=== PATIENT | male | born 1960 | race Caucasian/White ===

== ENCOUNTER 2021-05-21 13:14 | Inpatient (IN) | payer OTHER ==
[2021-05-21 14:51] VITALS: BMI 23.5
[2021-05-21] MEDS ORDERED: MAG HYDROX/AL HYDROX/SIMETH 30 ML UNIT-DOSE CUP PO PRN (15:12)
[2021-05-21] MEDS ORDERED: IBUPROFEN 400 MG TABLET (FP) PO PRN (15:12)
[2021-05-21] MEDS ORDERED: MAGNESIUM CITRATE 300 ML BOTTLE PO PRN (15:12)
[2021-05-21] MEDS ORDERED: METHOCARBAMOL 500 MG TABLET PO PRN (15:12)
[2021-05-21] MEDS ORDERED: NICOTINE 10 MG CARTRIDGE (INHALER) IH PRN (15:12)
[2021-05-21] MEDS ORDERED: MENTHOL/PHENOL 1 EACH UD MM PRN (15:12)
[2021-05-21] MEDS ORDERED: BISMUTH SUBSALICYLATE 524 MG/30 ML PO PRN (15:12)
[2021-05-21] MEDS ORDERED: ONDANSETRON *ODT* 4 MG TABLET SL PRN (15:12)
[2021-05-21] MEDS ORDERED: MAGNESIUM HYDROX 2400MG/30ML ORAL SUSPENSION 30 ML CUP PO PRN (15:12)
[2021-05-21] MEDS ORDERED: ACETAMINOPHEN 325 MG TABLET (FP) PO PRN ×2 (15:12)
[2021-05-21] MEDS: NICOTINE 21 MG/24 HOURS TOPICAL PATCH TD SCH (16:13)
[2021-05-21] MEDS: hydrOXYzine PAMOATE 25 MG CAPSULE (FP) PO SCH ×3 (18:23→22:38)
[2021-05-21] MEDS ORDERED: DIVALPROEX SODIUM 500 MG TABLET E.C. PO SCH (22:00)
[2021-05-21] MEDS ORDERED: THIAMINE HCL 100 MG TABLET (FP) PO SCH (22:00)
[2021-05-21] MEDS ORDERED: MELATONIN 5 MG TABLETS PO SCH (22:00)
[2021-05-21] MEDS: APIXABAN 5 MG TABLET PO SCH (22:35)
[2021-05-21] MEDS: CARVEDILOL 3.125 MG TABLET (FP) PO SCH (22:35)
[2021-05-22] MEDS: hydrOXYzine PAMOATE 25 MG CAPSULE (FP) PO SCH ×2 (05:37→10:16)
[2021-05-22 09:43] VITALS: BP 131/83; PULSE 91; TEMP 98
[2021-05-22] MEDS ORDERED: PRENATAL VITAMINS W/ FOLIC ACID TABLET (FP) PO SCH (10:00)
[2021-05-22] MEDS ORDERED: TAMSULOSIN HCL 0.4 MG CAP PO SCH (10:00)
[2021-05-22] MEDS: CARVEDILOL 3.125 MG TABLET (FP) PO SCH (10:16)
[2021-05-22] MEDS: APIXABAN 5 MG TABLET PO SCH (10:16)
[2021-05-22] MEDS: NICOTINE 21 MG/24 HOURS TOPICAL PATCH TD SCH (10:17)
[2021-05-22 10:45] LABS: HEMATOCRIT 46.6 % (35.4-49); HEMOGLOBIN 16.1 GM/dL (11.7-16.9); MCH 31.9 pg (25.7-33.7); MCHC 34.6 g/dl (32.0-35.9); MEAN CELL VOLUME 92.3 fl (80-96); PLATELET COUNT 242 10^3/uL (134-434); RBC 5.05 M/mm3 (4.00-5.60); RDW 15.6 % (11.9-15.9); WHITE BLOOD COUNT 7.2 K/mm3 (4.0-10.0)
[2021-05-22 11:02] LABS: BLOOD UREA NITROGEN 11.6 mg/dL (7-18); CALCIUM 9.2 mg/dL (8.5-10.1)
[2021-05-22 11:05] LABS: BILIRUBIN,TOTAL 1.7 mg/dL (0.2-1); CREATININE 1.2 mg/dL (0.55-1.3); TOT PROT 7.7 g/dl (6.4-8.2)
== END 2021-05-22 12:41 | disposition other institution (70) | DRG 774 ==
LOC: YASAS 13:14 → Y6N 14:38
PROVIDERS: ADMIT Allergy & Immunology; ATTEND Allergy & Immunology
PROC: HZ2ZZZZ Detoxification Services for Substance Abuse Treatment (ICD-10-PCS; principal; 2021-05-21)
DX: F10.230 Alcohol dependence with withdrawal, uncomplicated (principal); F14.20 Cocaine dependence, uncomplicated; F17.210 Nicotine dependence, cigarettes, uncomplicated; I10 Essential (primary) hypertension; Z86.711 Personal history of pulmonary embolism; Z86.718 Personal history of other venous thrombosis and embolism; Z79.01 Long term (current) use of anticoagulants; Z87.820 Personal history of traumatic brain injury
CPT/HCPCS: 36415; 71045-TC-FY; 80053; 85027; 86780; C9803; U0003; U0005

== ENCOUNTER 2021-05-22 11:32 | Inpatient (IN) | payer OTHER ==
[2021-05-22] MEDS ORDERED: NICOTINE POLACRILEX 2 MG GUM BUC PRN (14:05)
[2021-05-22] MEDS ORDERED: P-EPHED 60MG/TRIPROLIDI 2.5MG TABLET PO PRN (14:05)
[2021-05-22] MEDS ORDERED: LOPERAMIDE HCL 2 MG CAPSULE PO PRN (14:05)
[2021-05-22] MEDS ORDERED: IBUPROFEN 400 MG TABLET (FP) PO PRN (14:05)
[2021-05-22] MEDS ORDERED: hydrOXYzine PAMOATE 25 MG CAPSULE (FP) PO PRN (14:05)
[2021-05-22] MEDS ORDERED: guaiFENesin 200 MG/10 ML 10 ML UNIT-DOSE CUPS PO PRN (14:05)
[2021-05-22] MEDS ORDERED: MAGNESIUM HYDROX 2400MG/30ML ORAL SUSPENSION 30 ML CUP PO PRN (14:05)
[2021-05-22] MEDS ORDERED: ACETAMINOPHEN 325 MG TABLET (FP) PO PRN (14:05)
[2021-05-22] MEDS ORDERED: MAGNESIUM CITRATE 300 ML BOTTLE PO PRN (14:05)
[2021-05-22] MEDS ORDERED: MAG HYDROX/AL HYDROX/SIMETH 30 ML UNIT-DOSE CUP PO PRN (14:05)
[2021-05-22] MEDS ORDERED: MENTHOL/PHENOL 1 EACH UD MM PRN (14:05)
[2021-05-22] MEDS: APIXABAN 5 MG TABLET PO SCH (21:15)
[2021-05-22] MEDS: CARVEDILOL 3.125 MG TABLET (FP) PO SCH (21:15)
[2021-05-22] MEDS: THIAMINE HCL 100 MG TABLET (FP) PO SCH (21:15)
[2021-05-22] MEDS: DIVALPROEX SODIUM 500 MG TABLET E.C. PO SCH (21:15)
[2021-05-22] MEDS: MELATONIN 5 MG TABLETS PO SCH (23:40)
[2021-05-23] MEDS: TAMSULOSIN HCL 0.4 MG CAP PO SCH (09:47)
[2021-05-23] MEDS: APIXABAN 5 MG TABLET PO SCH ×2 (09:47→21:32)
[2021-05-23] MEDS: CARVEDILOL 3.125 MG TABLET (FP) PO SCH ×2 (09:47→21:31)
[2021-05-23] MEDS: NICOTINE 7 MG/24 HOURS TOPICAL PATCH TD SCH (09:48)
[2021-05-23] MEDS: PRENATAL VITAMINS W/ FOLIC ACID TABLET (FP) PO SCH (09:48)
[2021-05-23] MEDS: THIAMINE HCL 100 MG TABLET (FP) PO SCH (21:31)
[2021-05-23] MEDS: DIVALPROEX SODIUM 500 MG TABLET E.C. PO SCH (21:32)
[2021-05-23] MEDS: MELATONIN 5 MG TABLETS PO SCH (21:32)
[2021-05-24] MEDS: TAMSULOSIN HCL 0.4 MG CAP PO SCH (09:24)
[2021-05-24] MEDS: PRENATAL VITAMINS W/ FOLIC ACID TABLET (FP) PO SCH (09:24)
[2021-05-24] MEDS: NICOTINE 7 MG/24 HOURS TOPICAL PATCH TD SCH (09:25)
[2021-05-24] MEDS: APIXABAN 5 MG TABLET PO SCH ×2 (09:25→21:14)
[2021-05-24] MEDS: CARVEDILOL 3.125 MG TABLET (FP) PO SCH ×2 (09:25→21:14)
[2021-05-24] MEDS: THIAMINE HCL 100 MG TABLET (FP) PO SCH (21:14)
[2021-05-24] MEDS: MELATONIN 5 MG TABLETS PO SCH (21:14)
[2021-05-24] MEDS: DIVALPROEX SODIUM 500 MG TABLET E.C. PO SCH (21:14)
[2021-05-25] MEDS: CARVEDILOL 3.125 MG TABLET (FP) PO SCH ×2 (09:39→21:09)
[2021-05-25] MEDS: PRENATAL VITAMINS W/ FOLIC ACID TABLET (FP) PO SCH (09:39)
[2021-05-25] MEDS: NICOTINE 7 MG/24 HOURS TOPICAL PATCH TD SCH (09:39)
[2021-05-25] MEDS: TAMSULOSIN HCL 0.4 MG CAP PO SCH (09:39)
[2021-05-25] MEDS: APIXABAN 5 MG TABLET PO SCH ×2 (09:39→21:09)
[2021-05-25] MEDS: DIVALPROEX SODIUM 500 MG TABLET E.C. PO SCH (21:09)
[2021-05-25] MEDS: THIAMINE HCL 100 MG TABLET (FP) PO SCH (21:09)
[2021-05-25] MEDS: MELATONIN 5 MG TABLETS PO SCH (21:10)
[2021-05-26] MEDS: PRENATAL VITAMINS W/ FOLIC ACID TABLET (FP) PO SCH (09:54)
[2021-05-26] MEDS: NICOTINE 7 MG/24 HOURS TOPICAL PATCH TD SCH (09:54)
[2021-05-26] MEDS: CARVEDILOL 3.125 MG TABLET (FP) PO SCH ×2 (09:54→21:21)
[2021-05-26] MEDS: TAMSULOSIN HCL 0.4 MG CAP PO SCH (09:54)
[2021-05-26] MEDS: APIXABAN 5 MG TABLET PO SCH ×2 (09:55→21:21)
[2021-05-26] MEDS: MELATONIN 5 MG TABLETS PO SCH (21:21)
[2021-05-26] MEDS: DIVALPROEX SODIUM 500 MG TABLET E.C. PO SCH (21:21)
[2021-05-26] MEDS: THIAMINE HCL 100 MG TABLET (FP) PO SCH (21:21)
[2021-05-27] MEDS: CARVEDILOL 3.125 MG TABLET (FP) PO SCH ×2 (10:03→21:19)
[2021-05-27] MEDS: TAMSULOSIN HCL 0.4 MG CAP PO SCH (10:03)
[2021-05-27] MEDS: APIXABAN 5 MG TABLET PO SCH ×2 (10:03→21:19)
[2021-05-27] MEDS: PRENATAL VITAMINS W/ FOLIC ACID TABLET (FP) PO SCH (10:03)
[2021-05-27] MEDS: NICOTINE 7 MG/24 HOURS TOPICAL PATCH TD SCH (10:04)
[2021-05-27] MEDS: MELATONIN 5 MG TABLETS PO SCH (21:19)
[2021-05-27] MEDS: DIVALPROEX SODIUM 500 MG TABLET E.C. PO SCH (21:19)
[2021-05-27] MEDS: THIAMINE HCL 100 MG TABLET (FP) PO SCH (21:19)
[2021-05-28] MEDS: PRENATAL VITAMINS W/ FOLIC ACID TABLET (FP) PO SCH (10:01)
[2021-05-28] MEDS: CARVEDILOL 3.125 MG TABLET (FP) PO SCH ×2 (10:01→21:23)
[2021-05-28] MEDS: NICOTINE 7 MG/24 HOURS TOPICAL PATCH TD SCH (10:01)
[2021-05-28] MEDS: APIXABAN 5 MG TABLET PO SCH ×2 (10:01→21:23)
[2021-05-28] MEDS: TAMSULOSIN HCL 0.4 MG CAP PO SCH (10:01)
[2021-05-28] MEDS: DIVALPROEX SODIUM 500 MG TABLET E.C. PO SCH (21:23)
[2021-05-28] MEDS: MELATONIN 5 MG TABLETS PO SCH (21:23)
[2021-05-28] MEDS: THIAMINE HCL 100 MG TABLET (FP) PO SCH (21:23)
[2021-05-29] MEDS: PRENATAL VITAMINS W/ FOLIC ACID TABLET (FP) PO SCH (09:26)
[2021-05-29] MEDS: TAMSULOSIN HCL 0.4 MG CAP PO SCH (09:26)
[2021-05-29] MEDS: NICOTINE 7 MG/24 HOURS TOPICAL PATCH TD SCH (09:26)
[2021-05-29] MEDS: CARVEDILOL 3.125 MG TABLET (FP) PO SCH ×2 (09:26→21:29)
[2021-05-29] MEDS: APIXABAN 5 MG TABLET PO SCH ×2 (09:26→21:27)
[2021-05-29] MEDS: THIAMINE HCL 100 MG TABLET (FP) PO SCH (21:23)
[2021-05-29] MEDS: MELATONIN 5 MG TABLETS PO SCH (21:24)
[2021-05-29] MEDS: DIVALPROEX SODIUM 500 MG TABLET E.C. PO SCH (21:27)
[2021-05-30] MEDS: TAMSULOSIN HCL 0.4 MG CAP PO SCH (07:44)
[2021-05-30] MEDS: CARVEDILOL 3.125 MG TABLET (FP) PO SCH ×2 (09:19→21:07)
[2021-05-30] MEDS: PRENATAL VITAMINS W/ FOLIC ACID TABLET (FP) PO SCH (09:19)
[2021-05-30] MEDS: APIXABAN 5 MG TABLET PO SCH ×2 (09:19→21:07)
[2021-05-30] MEDS: NICOTINE 7 MG/24 HOURS TOPICAL PATCH TD SCH (09:20)
[2021-05-30] MEDS: DIVALPROEX SODIUM 500 MG TABLET E.C. PO SCH (21:07)
[2021-05-30] MEDS: MELATONIN 5 MG TABLETS PO SCH (21:07)
[2021-05-30] MEDS: THIAMINE HCL 100 MG TABLET (FP) PO SCH (21:07)
[2021-05-31] MEDS: APIXABAN 5 MG TABLET PO SCH ×2 (09:48→21:18)
[2021-05-31] MEDS: CARVEDILOL 3.125 MG TABLET (FP) PO SCH ×2 (09:48→21:18)
[2021-05-31] MEDS: PRENATAL VITAMINS W/ FOLIC ACID TABLET (FP) PO SCH (09:48)
[2021-05-31] MEDS: TAMSULOSIN HCL 0.4 MG CAP PO SCH (09:48)
[2021-05-31] MEDS: NICOTINE 7 MG/24 HOURS TOPICAL PATCH TD SCH (09:48)
[2021-05-31] MEDS: DIVALPROEX SODIUM 500 MG TABLET E.C. PO SCH (21:18)
[2021-05-31] MEDS: MELATONIN 5 MG TABLETS PO SCH (21:18)
[2021-05-31] MEDS: THIAMINE HCL 100 MG TABLET (FP) PO SCH (21:18)
[2021-06-01] MEDS: CARVEDILOL 3.125 MG TABLET (FP) PO SCH ×2 (09:44→21:35)
[2021-06-01] MEDS: NICOTINE 7 MG/24 HOURS TOPICAL PATCH TD SCH (09:44)
[2021-06-01] MEDS: APIXABAN 5 MG TABLET PO SCH ×2 (09:44→21:35)
[2021-06-01] MEDS: TAMSULOSIN HCL 0.4 MG CAP PO SCH (09:44)
[2021-06-01] MEDS: PRENATAL VITAMINS W/ FOLIC ACID TABLET (FP) PO SCH (09:44)
[2021-06-01] MEDS: DIVALPROEX SODIUM 500 MG TABLET E.C. PO SCH (21:35)
[2021-06-01] MEDS: THIAMINE HCL 100 MG TABLET (FP) PO SCH (21:35)
[2021-06-01] MEDS: MELATONIN 5 MG TABLETS PO SCH (21:35)
[2021-06-02] MEDS: TAMSULOSIN HCL 0.4 MG CAP PO SCH (10:24)
[2021-06-02] MEDS: APIXABAN 5 MG TABLET PO SCH ×2 (10:25→21:33)
[2021-06-02] MEDS: CARVEDILOL 3.125 MG TABLET (FP) PO SCH ×2 (10:25→21:33)
[2021-06-02] MEDS: PRENATAL VITAMINS W/ FOLIC ACID TABLET (FP) PO SCH (10:26)
[2021-06-02] MEDS: NICOTINE 7 MG/24 HOURS TOPICAL PATCH TD SCH (10:27)
[2021-06-02] MEDS: THIAMINE HCL 100 MG TABLET (FP) PO SCH (21:33)
[2021-06-02] MEDS: DIVALPROEX SODIUM 500 MG TABLET E.C. PO SCH (21:33)
[2021-06-02] MEDS: MELATONIN 5 MG TABLETS PO SCH (21:33)
[2021-06-03] MEDS: TAMSULOSIN HCL 0.4 MG CAP PO SCH (07:32)
[2021-06-03] MEDS: CARVEDILOL 3.125 MG TABLET (FP) PO SCH ×2 (09:49→21:17)
[2021-06-03] MEDS: APIXABAN 5 MG TABLET PO SCH ×2 (09:49→21:17)
[2021-06-03] MEDS: PRENATAL VITAMINS W/ FOLIC ACID TABLET (FP) PO SCH (09:50)
[2021-06-03] MEDS: NICOTINE 7 MG/24 HOURS TOPICAL PATCH TD SCH (09:50)
[2021-06-03] MEDS: NICOTINE 10 MG CARTRIDGE (INHALER) IH PRN (16:04)
[2021-06-03] MEDS: THIAMINE HCL 100 MG TABLET (FP) PO SCH (21:17)
[2021-06-03] MEDS: DIVALPROEX SODIUM 500 MG TABLET E.C. PO SCH (21:17)
[2021-06-03] MEDS: MELATONIN 5 MG TABLETS PO SCH (21:19)
[2021-06-04 06:51] VITALS: TEMP 97.1
[2021-06-04] MEDS: TAMSULOSIN HCL 0.4 MG CAP PO SCH (08:32)
[2021-06-04] MEDS: CARVEDILOL 3.125 MG TABLET (FP) PO SCH ×2 (10:15→21:20)
[2021-06-04] MEDS: APIXABAN 5 MG TABLET PO SCH ×2 (10:15→21:21)
[2021-06-04] MEDS: NICOTINE 7 MG/24 HOURS TOPICAL PATCH TD SCH (10:17)
[2021-06-04] MEDS: PRENATAL VITAMINS W/ FOLIC ACID TABLET (FP) PO SCH (10:17)
[2021-06-04] MEDS: NICOTINE 10 MG CARTRIDGE (INHALER) IH PRN (15:40)
[2021-06-04] MEDS: THIAMINE HCL 100 MG TABLET (FP) PO SCH (21:20)
[2021-06-04] MEDS: MELATONIN 5 MG TABLETS PO SCH (21:21)
[2021-06-04] MEDS: DIVALPROEX SODIUM 500 MG TABLET E.C. PO SCH (21:21)
[2021-06-05 06:58] VITALS: BP 123/81; PULSE 90
[2021-06-05] MEDS: TAMSULOSIN HCL 0.4 MG CAP PO SCH (07:53)
[2021-06-05] MEDS: PRENATAL VITAMINS W/ FOLIC ACID TABLET (FP) PO SCH (09:11)
[2021-06-05] MEDS: CARVEDILOL 3.125 MG TABLET (FP) PO SCH (09:11)
[2021-06-05] MEDS: NICOTINE 7 MG/24 HOURS TOPICAL PATCH TD SCH (09:11)
[2021-06-05] MEDS: APIXABAN 5 MG TABLET PO SCH (09:11)
== END 2021-06-05 09:15 | disposition home or self-care (01) | DRG 772 ==
LOC: YASAS 11:32 → Y3E 11:33
PROVIDERS: ADMIT Allergy & Immunology; ATTEND Allergy & Immunology
PROC: HZ42ZZZ Group Counseling for Substance Abuse Treatment, Cognitive-Behavioral (ICD-10-PCS; principal; 2021-05-22)
DX: F10.20 Alcohol dependence, uncomplicated (principal); F14.20 Cocaine dependence, uncomplicated; F17.210 Nicotine dependence, cigarettes, uncomplicated; I10 Essential (primary) hypertension; K21.9 Gastro-esophageal reflux disease without esophagitis; N40.0 Benign prostatic hyperplasia without lower urinary tract symptoms; R07.89 Other chest pain; Z86.718 Personal history of other venous thrombosis and embolism; Z79.01 Long term (current) use of anticoagulants; Z99.89 Dependence on other enabling machines and devices
CPT/HCPCS: 93005; 93010; C9803; U0003; U0005

== ENCOUNTER 2021-05-24 10:20 | Emergency (ER) | payer OTHER ==
[2021-05-24 11:15] VITALS: BP 168/83; PULSE 83; TEMP 98.2; BMI 38.7
[2021-05-24] MEDS ORDERED: ACETAMINOPHEN 325 MG TABLET (FP) PO ONE (13:20)
[2021-05-24 13:30] LABS: BASO % 1.2 % (0-2.0); EOS % 4.2 % (0-4.5); HEMATOCRIT 40.9 % (35.4-49); HEMOGLOBIN 14.5 GM/dL (11.7-16.9); LYMPH % 39.5 % (8-40); MCH 31.9 pg (25.7-33.7); MCHC 35.4 g/dl (32.0-35.9); MEAN CELL VOLUME 90.1 fl (80-96); MONO % 7.6 % (3.8-10.2); NEUT % 47.5 % (42.8-82.8); PLATELET COUNT 257 10^3/uL (134-434); RBC 4.55 M/mm3 (4.00-5.60); RDW 14.8 % (11.9-15.9); WHITE BLOOD COUNT 6.7 K/mm3 (4.0-10.0)
[2021-05-24 13:44] LABS: INR 0.96 (0.83-1.09); PROTHROMBIN TIME (PATIENT) 11.2 SEC (9.7-13.0)
[2021-05-24 13:47] LABS: ACTIVATED PTT 31.3 SECONDS (25.2-36.5)
[2021-05-24 13:50] LABS: CHLORIDE 108 mmol/L (98-107); SODIUM 142 mmol/L (136-145)
[2021-05-24 13:52] LABS: ANION GAP 4 MMOL/L (8-16); BLOOD UREA NITROGEN 11.8 mg/dL (7-18); CALCIUM 8.8 mg/dL (8.5-10.1); CO2 30 mmol/L (21-32); GLUCOSE,RANDOM 97 mg/dL (74-106)
[2021-05-24 13:55] LABS: CREATININE 0.9 mg/dL (0.55-1.3); SGOT/AST 14 U/L (15-37); SGPT/ALT 16 U/L (13-61)
[2021-05-24 13:57] LABS: TOT PROT 6.5 g/dl (6.4-8.2)
[2021-05-24 13:58] LABS: ALK PHOS 71 U/L (45-117)
[2021-05-24 13:59] LABS: ALBUMIN 3.2 g/dl (3.4-5.0); BILIRUBIN,TOTAL 0.3 mg/dL (0.2-1)
== END 2021-05-24 18:28 | disposition home or self-care (01) ==
LOC: JER 10:20
DX: R07.9 Chest pain, unspecified (principal)
CPT/HCPCS: 36415; 80053; 82550; 84484; 85025; 85379; 85610; 85730; 93005; 93010; 93971-TC; 99285-25